=== PATIENT | female | born 1945 | race Caucasian/White ===

== ENCOUNTER 2017-11-08 08:42 | Outpatient (CLI) | payer MEDICARE ==
[2017-11-08 10:26] LABS: Bilirubin Small (Negative); Blood, Urine Negative (Negative); Clarity CLEAR (Clear); Glucose, Urine (Dipstick) Negative (Negative); Leukocyte Negative (Negative); Nitrite Negative (Negative); Protein, Urine (Dipstick) Trace mg/dL (Neg-Trace); Specific Gravity, Urine 1.025 (1.002-1.036); pH, Urine 5.5 (5.0-9.0)
[2017-11-08 10:29] LABS: #Basophils 0.1 thou/uL (0.0-0.2); #Eosinphils 0.1 thou/uL (0.0-0.7); #Lymphocytes 1.7 thou/uL (1.20-3.40); #Monocytes 0.6 thou/uL (0.11-0.59); #Neutrophils 3.5 thou/uL (1.40-6.50); %Basophils 0.9 % (0.0-1.0); %Eosinophils 1.8 % (0.0-10.0); %Lymphocytes 28.6 % (21.0-51.0); %Monocytes 10.3 % (0.0-10.0); %Neutrophils 58.4 % (42.0-75.0); Hemoglobin 14.4 g/dL (12.0-16.0); Mean Corpuscular HGB CONC 34.2 g/dL (32.0-36.0); Mean Corpuscular Hemoglobin 32.7 pg (27.0-31.0); Mean Corpuscular Volume 95.6 fL (78.0-98.0); Mean Platelet Volume 6.8 fL (7.4-10.4); Pathc Cast-AUWi Flag 1.88 (0-2.49); Platelet Count 280 thou/uL (130-400); RBC Distribution Width 12.6 % (11.5-14.5); Red Blood Cell (RBC) Count 4.39 mill/uL (4.20-5.40); Squamous Epithelial 0-3 HPF (0-3); WBC/HPF 0-3 HPF (0-3)
[2017-11-08 10:31] LABS: INR-International Normal Ratio 0.9; Prothrombin Time 12.6 SEC (12.0-14.7)
[2017-11-08 10:39] LABS: Bacteria/HPF 1+ HPF (None Seen); Crystals/HPF 1+ CA OXALATE HPF (Negative); Hyaline Casts/LPF NONE SEEN LPF (0-3 Hyaline); RBC/HPF None Seen HPF (0-3)
[2017-11-08 10:48] LABS: Anion Gap 14 mmol/L (10-20); BUN (Urea Nitrogen) 9 mg/dL (9.8-20.1); Calc. Creatinine Clearance 0 mL/min (70-130); Carbon Dioxide 21 mmol/L (23-31); Chloride 106 mmol/L (98-107); Estimated GFR-MDRD 69; Glucose 106 mg/dL (83-110); Potassium 3.9 mmol/L (3.5-5.1); Sodium 137 mmol/L (136-145)
== END 2017-11-08 08:43 | disposition home or self-care (01) ==
LOC: LABBT 08:42
PROVIDERS: ATTEND Orthopaedic Surgery
DX: Z01.818 Encounter for other preprocedural examination (principal); M17.11 Unilateral primary osteoarthritis, right knee
CPT/HCPCS: 80048; 81001; 85025; 85610; 87081; 87086; 93005; 93010

== ENCOUNTER 2017-11-14 12:36 | Outpatient (CLI) | payer MEDICARE | END 2017-11-14 12:37 | disposition home or self-care (01) | LOC: LABBT 12:36 | PROVIDERS: ATTEND Orthopaedic Surgery | DX: Z01.818 Encounter for other preprocedural examination (principal); M17.11 Unilateral primary osteoarthritis, right knee | CPT/HCPCS: 86850; 86900; 86901 ==

== ENCOUNTER 2017-11-19 05:40 | Inpatient (IN) | payer MEDICARE ==
[2017-11-08 09:12] VITALS: BMI 31.2
--- NOTE | 2017-11-09 09:48 | HP ---
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 There has been no recent inju ry. She has had arthroscopic meniscectomies of both knees in the past. She has developed progressiv e pain and difficulty walking, getting dressed despite rest, restriction of activities, anti-inflamma tory medications, and multiple previous injections. The pain is now interfering with day-to-day acti vities including walking, getting dressed and sleeping. PAST MEDICAL HISTORY: As noted above. The patient has a history of hypertension. PAST SURGICAL HISTORY: She has had multiple previous back surgeries and has some chronic pain and is followed by Dr. Allred. CURRENT MEDICATIONS: Include temazepam, estradiol, omega 3, multivitamins, amlodipine. ALLERGIES: CODEINE and TOPAMAX. FAMILY HISTORY/SOCIAL HISTORY/REVIEW OF SYSTEMS: Otherwise unremarkable. PHYSICAL EXAMINATION: GENERAL: Reveals a healthy female. HEENT: Unremarkable. NECK: Supple. CHEST: Clear. HEART: Regular rate and rhythm. ABDOMEN: Soft, nontender. PELVIC/RECTAL/BREAST: Exams are deferred. EXTREMITIES: Pertinent findings of the right knee. There is mild varus. There are healed arthrosco py puncture sites. There is tenderness and crepitus over the medial joint line. Range of motion is 5-120 degrees. There is no instability. Neurovascular exam is intact. Pulses are 2+. Straight leg raising is negative. LABORATORY AND X-RAY FINDINGS: X-rays of the right knee reveal bone on bone collapse medially. IMPRESSION: 1. Degenerative arthritis, right knee. 2. History of hypertension. PLAN: Right total knee replacement. The nature of the surgery, length of recovery, and potential co mplications such as infection, loss of motion, incomplete relief, delayed wound healing, neurovascula r injury, thromboembolic phenomenon, possible transfusion, and need for revision have been discussed in detail.
[2017-11-19] MEDS ORDERED: Vancomycin HCl 1.5 GM in Sodium Chloride 0.9% 250 ML 300 ML IVPB SCH ×2 (06:15→20:00)
[2017-11-19] MEDS ORDERED: CEFAZOLIN/Water 2 GM/20 ML SYRINGE ONE (06:27)
[2017-11-19] MEDS ORDERED: Sodium Chloride 0.9% 100 ML ONE (06:27)
[2017-11-19] MEDS ORDERED: Midazolam HCl 2 mg/2 ml Vial ONE (06:30)
[2017-11-19] MEDS ORDERED: Lidocaine 1% (PF) 30 ML VIAL ONE (06:30)
[2017-11-19] MEDS ORDERED: Fentanyl 100 MCG/2 ML VIAL ONE ×5 (06:30→10:05)
[2017-11-19] MEDS ORDERED: Bupivacaine/Epinephrine 0.25% 30 ML VIAL ONE ×2 (06:57)
[2017-11-19] MEDS ORDERED: Lidocaine 1% w/Epinephrine 1:100K 30 ML VIAL ONE (06:57)
[2017-11-19] MEDS ORDERED: Zolpidem Tartrate 5 MG TAB PO PRN ×2 (06:59→11:15)
[2017-11-19] MEDS ORDERED: HYDROcodone/Acetaminophen 10/325 mg Tablet PO PRN ×4 (06:59→11:15)
[2017-11-19] MEDS ORDERED: Ondansetron HCl/PF 4 MG/2 ML Vial IVP PRN ×3 (06:59→11:15)
[2017-11-19] MEDS ORDERED: traMADol HCl 50 MG TAB PO PRN ×3 (06:59→11:15)
[2017-11-19] MEDS ORDERED: Promethazine HCl 25 MG/ML VIAL IM PRN ×2 (06:59→07:29)
[2017-11-19] MEDS ORDERED: Ropivacaine HCl/PF 250 ML in Premix Bag 1 BAG NERVE BLCK SCH (06:59)
[2017-11-19] MEDS ORDERED: Fentanyl 100 MCG/2 ML VIAL IV PRN (07:00)
[2017-11-19] MEDS ORDERED: Promethazine HCl 25 MG/ML VIAL SLOW IVP PRN ×2 (07:29→11:15)
[2017-11-19] MEDS ORDERED: Tranexamic Acid 1,000 MG in Sodium Chloride 0.9% 100 ML IVPB SCH ×2 (09:15→11:15)
[2017-11-19] MEDS ORDERED: HYDROmorphone 0.5 MG/0.5 ML SYRINGE ONE (10:18)
[2017-11-19] MEDS ORDERED: Fentanyl 100 MCG/2 ML VIAL SLOW IVP PRN ×2 (11:15)
--- NOTE | 2017-11-19 11:21 | OP ---
DATE OF PROCEDURE: 11/19/2017 SURGEON: Lupillo Richey M.D. CLINICAL SERVICES CONSULTANT: MICHELLE Bernard. ANESTHESIA: General plus adductor canal and sciatic nerve blocks. PREOPERATIVE DIAGNOSIS: Degenerative arthritis, right knee. POSTOPERATIVE DIAGNOSIS: Degenerative arthritis, right knee. PROCEDURES: Right total knee replacement with computer-assisted navigation with cemented [place] Tri athlon components (#4 femoral component, #4 universal tibial baseplate with 11 mm CS plastic insert, and all plastic A29 patellar component). NARRATIVE REPORT: After satisfactory anesthesia was induced in supine position, sequential compressi on device was placed on the non-operative leg throughout the procedure. The right leg was then prepp ed and draped in routine sterile fashion. Right leg was elevated and exsanguinated with an Esmarch b andage, and the tourniquet inflated to 300 mmHg. A gently curved medial parapatellar incision was ma de and carried down to subcutaneous tissues. Bleeding points controlled with Bovie cautery. Medial parapatellar arthrotomy was performed. Patella was dislocated laterally and portions of the fat pad were excised for exposure. There was marked degenerative arthritis of the knee, especially medially, with large areas of exposed bone. Meniscal remnants and osteophytes were removed. Using the Snaptrip r pinless navigation system and the appropriate guides, the distal femoral and proximal tibial articu lar surfaces were excised with an oscillating saw to accept the trial components. It was felt that a #4 femoral component and #4 universal tibial baseplate with 11 mm CS plastic insert gave appropriate size, fit, stability, and correction of the preoperative deformity. The patellar articular surface was excised to accept an all plastic A29 patellar component. There was good patellar tracking and go od range of motion. The trial components were removed. The knee was copiously irrigated with pulsat ile lavage and the bony surfaces thoroughly cleaned and dried. The permanent components were then ce mented in a single stage using 1 package of cement premixed with 1 gram of tobramycin powder. Excess cement was removed. There was again good fit and stability of the components. Knee was again copio usly irrigated. The medial retinaculum and quadriceps mechanism was closed with interrupted #2 Vicry l and a running #2 Quill. Subcutaneous tissues were closed with a running 0 Quill suture. Skin was infiltrated with 30 mL of 0.25% Marcaine with epinephrine. Skin was closed with running subcuticular 3-0 Monoderm and SurgiSeal skin adhesive. A sterile bulky compressive dressing was applied. The tourniquet deflated after 79 minutes. The chey[place] t promptly pinked up. Sequential compression device was placed on the operated leg and she was awake jessica, taken to the recovery room in stable condition. There were no apparent intraoperative complicat ions. The estimated blood loss was less than 100 mL.
--- NOTE | 2017-11-19 11:48 | RAD ---
RIGHT KNEE TWO VIEWS: History: Post op. FINDINGS: Total knee prosthesis is in place without signs of fracture. IMPRESSION: Placement of total knee prosthesis which is in good position. POS: [facility]
[2017-11-19] MEDS ORDERED: Estradiol 0.1mg/24 Hour Patch (Weekly) TD SCH (13:00)
[2017-11-19] MEDS: Ketorolac Tromethamine 30 MG/ML VIAL IVP SCH ×3 (14:11→22:36)
[2017-11-19] MEDS: Sodium Chloride 0.9% 1,000 ML IV SCH ×2 (14:15→21:59)
[2017-11-19] MEDS: CEFAZOLIN/Water 2 GM/20 ML SYRINGE SLOW IVP SCH ×2 (14:20→22:00)
[2017-11-19] MEDS ORDERED: Ropivacaine 0.5% HCl/PF (150 MG/30 ML VIAL) ONE (14:34)
[2017-11-19] MEDS ORDERED: Bupivacaine 0.25% HCL 30 ML VIAL ONE (14:34)
[2017-11-19] MEDS ORDERED: Lidocaine 1% PF 5 ML VIAL ONE (15:04)
[2017-11-19] MEDS ORDERED: PROPOFOL 200 MG/20 ML VIAL ONE (15:04)
[2017-11-19] MEDS ORDERED: Ondansetron HCl/PF 4 MG/2 ML Vial ONE (15:04)
[2017-11-19] MEDS ORDERED: Ketorolac Tromethamine 30 MG/ML VIAL ONE (15:04)
[2017-11-19] MEDS ORDERED: Naloxone HCl 0.4 mg/ml Vial IV PRN (15:53)
[2017-11-19] MEDS: fentaNYL Citrate/PF 2,000 MCG in Sodium Chloride 0.9% 60 ML IV PRN (16:49)
[2017-11-19] MEDS: Acetaminophen 650 MG in Premix Bag 1 BAG IVPB PRN (18:02)
[2017-11-19] MEDS: Aspirin 81 mg Enteric Coated Tablet PO SCH (20:05)
[2017-11-19] MEDS: diphenhydrAMINE 25 MG CAP PO PRN (22:00)
--- NOTE | 2017-11-19 23:56 | PDOC.EVN ---
Event Note - Event Note Event Note: consult dictated [id number]
--- NOTE | 2017-11-20 00:29 | CON ---
DATE OF CONSULTATION: 11/19/2017 PRIMARY CARE PHYSICIAN: Dr. Fela Conway. REASON FOR CONSULTATION: Medical management postoperatively. HISTORY OF PRESENT ILLNESS: This is a 72-year-old female with a history of degenerative joint diseas e, early menopause who has undergone a right total arthroplasty. The patient tolerated this procedur e well and I am currently evaluating the patient, status post surgery. The patient is awake, alert, conversant, and accompanied by her today At the time of my evaluation, the patient complains of discomfort surrounding her surgical site, but otherwise has no other pain. She has no other complaints at this point in time. REVIEW OF SYSTEMS: As per HPI. CONSTITUTIONAL: No recent illness, no fevers, no chills, no signifi cant weight loss or gain in the preceding months prior to surgery. HEENT: No new headaches, vision changes, lightheadedness or dizziness. CARDIOVASCULAR: Denies any chest pain, chest pressure or pal pitations, left-sided arm numbness or tingling. RESPIRATORY: Denies any shortness of breath, cough, congestion or dyspnea with mild exertion. GASTROINTESTINAL: Denies any nausea, vomiting, abdominal pain, diarrhea or constipation. GENITOURINARY: Denies any issues with urinary color, odor, frequen cy. Currently, has a Duncan in place. MUSCULOSKELETAL: As discussed above. Remainder of the review of systems otherwise negative. PAST MEDICAL HISTORY: As per above with a known history of occasional insomnia, status post hysterec ike and resultant early menopause for which the patient is on estradiol, hypertension, status post m ultiple back surgeries for chronic pain. HOME MEDICATIONS: Include the following, omega 3, Krill oil 1 tab p.o. daily, amlodipine 1 tab p.o. every other day, acetaminophen with codeine, Tylenol #3 one tab as needed, temazepam 30 mg p.o. at be dtime, estradiol 0.1 mg transdermal patch every week, vitamin D3 5000 units p.o. every other day. ALLERGIES: Include CODEINE which causes itching, although the patient apparently is able to tolerate the formulation and TYLENOL 3 and TOPIRAMATE. SOCIAL HISTORY: The patient is accompanied by her today. She denies any alcohol, tobacco or illicit drug use and endorses wishing to be FULL CODE at this point in time. FAMILY HISTORY: Denies any known family history of complications status post surgery or anesthesia. The patient herself has undergone multiple surgeries without any difficulty in the postoperative per iod. Patient also indicates that she has had a cataract surgery, which resulted in a degree of visio n loss postoperatively. This is grossly unchanged today. PHYSICAL EXAMINATION: GENERAL: The patient is awake, alert, appropriate, in no acute distress, conversant. HEENT: Normocephalic, atraumatic. Moist mucous membranes. Equal ocular motions are intact. CARDIOVASCULAR: S1, S2. Soft heart tones. Pulses 2+ in bilateral upper extremities. No pitting pe daisy edema. RESPIRATORY: Reduced air movements. No wheezes, no rales, no rhonchi. Grossly clear to auscultatio n without any conversational dyspnea. GASTROINTESTINAL: Positive bowel sounds, slightly decreased, but otherwise soft, nontender to palpat ion. MUSCULOSKELETAL: The patient's right lower extremity is bandaging and has not been taken off of exam ination. GENITOURINARY: The patient has a Duncan that is draining clear yellow urine. LABORATORY DATA: Currently none available. ASSESSMENT AND PLAN: This is a 72-year-old female status post right total knee arthroplasty, postope rative management as per Orthopedic Surgery. The patient has a known history of hypertension, for wh ich she takes amlodipine every other day as well as the patient's blood pressure allows it to be reas onable to resume this medication. The remainder of the patient's medications including her estradiol , temazepam may be resumed for her insomnia as her blood pressure tolerates. I would caution regardi ng temazepam use in conjunction with any potential narcotic pain regimen if needed. The patient may still take temazepam, but may consider a lower dose or not dosing at all if she has increased somnole nce from her pain medication regimen. I have discussed the above with the patient and her at bedside. Thank you for asking me to consult. We will continue to follow.
[2017-11-20 04:02] LABS: Hemoglobin 12.4 g/dL (12.0-16.0); Mean Corpuscular HGB CONC 33.4 g/dL (32.0-36.0); Mean Corpuscular Hemoglobin 32.7 pg (27.0-31.0); Mean Corpuscular Volume 97.9 fL (78.0-98.0); Mean Platelet Volume 6.8 fL (7.4-10.4); Platelet Count 232 thou/uL (130-400); RBC Distribution Width 12.9 % (11.5-14.5); Red Blood Cell (RBC) Count 3.79 mill/uL (4.20-5.40); White Blood Cell (WBC) Count 10.8 thou/uL (4.8-10.8)
[2017-11-20] MEDS: Ketorolac Tromethamine 30 MG/ML VIAL IVP SCH ×4 (05:46→23:26)
[2017-11-20] MEDS: Acetaminophen 650 MG in Premix Bag 1 BAG IVPB PRN (08:51)
[2017-11-20] MEDS ORDERED: KRILL PO SCH (09:00)
[2017-11-20] MEDS ORDERED: DHA PO SCH (09:00)
[2017-11-20] MEDS ORDERED: EPA PO SCH (09:00)
[2017-11-20] MEDS ORDERED: PHOSPHO PO SCH (09:00)
[2017-11-20] MEDS ORDERED: [UNRECOGNIZED DRUG - OTHER] PO SCH (09:00)
[2017-11-20] MEDS ORDERED: AST PO SCH (09:00)
[2017-11-20] MEDS: Multivitamin W/ Minerals 1 TAB PO SCH (09:01)
[2017-11-20] MEDS: Senokot S 8.6-50 MG TAB PO SCH ×2 (09:01→20:55)
[2017-11-20] MEDS: Ferrous Gluconate 324 MG TAB PO SCH ×2 (09:01→20:55)
[2017-11-20] MEDS: Aspirin 81 mg Enteric Coated Tablet PO SCH ×2 (09:01→20:55)
[2017-11-20] MEDS: Amlodipine 5 MG TAB PO SCH (09:02)
[2017-11-20] MEDS: Sodium Chloride 0.9% 1,000 ML IV SCH ×2 (09:17→20:58)
[2017-11-20] MEDS: diphenhydrAMINE 25 MG CAP PO PRN ×2 (10:26→20:55)
[2017-11-20] MEDS ORDERED: Acetaminophen 650 MG in Premix Bag 1 BAG IVPB PRN (16:13)
--- NOTE | 2017-11-20 16:19 | PDOC.PN ---
- Subjective Encounter Start Date: 11/20/17 Encounter Start Time: 09:00 Pt seen for followup re: hypertension. Denies chest pain, shortness of breath, fevers or chills. - Objective MAR Reviewed: Yes Vital Signs & Weight: Vital Signs (12 hours) Temp Pulse Resp BP BP BP Pulse Ox 11/20/17 15:40 98.3 F 73 16 153/80 H 99 11/20/17 12:05 98.2 F 69 16 132/75 97 11/20/17 09:02 81 124/70 11/20/17 08:00 98.6 F 81 20 96 11/20/17 07:47 98.9 F 75 16 124/72 96 Weight Admit Weight 182 lb Weight 182 lb I&O: 11/19/17 11/20/17 11/21/17 06:59 06:59 06:59 Intake Total 1900 Output Total 700 Balance 1200 Result Diagrams: 11/20/17 03:31 Additional Labs: Labs reviewed by me Phys Exam - Physical Examination Constitutional: NAD HEENT: moist MMs Neck: supple Respiratory: clear to auscultation bilateral Cardiovascular: RRR Gastrointestinal: soft s/p R knee surgery Psychiatric: normal affect Dx/Plan (1) HTN (hypertension) Code(s): I10 - ESSENTIAL (PRIMARY) HYPERTENSION Status: Chronic Comment: controlled, continue amlodipine (2) Arthritis Code(s): M19.90 - UNSPECIFIED OSTEOARTHRITIS, UNSPECIFIED SITE Status: Chronic Comment: s/p R knee surgery - Plan PT/OT * . pain management and DVT prophylaxis per orthopedic surgery service. Review of Systems - Review of Systems Respiratory: negative: Cough, Shortness of Breath, SOB with Excertion, Pleuritic Pain, Wheezing Cardiovascular: negative: chest pain, palpitations, orthopnea, paroxysmal nocturnal dyspnea, edema, light headedness - Medications/Allergies Allergies/Adverse Reactions: Allergies Allergy/AdvReac Type Severity Reaction Status Date / Time codeine Allergy itching Verified 11/08/17 09:13 topiramate [From Topamax] Allergy Verified 11/08/17 09:13 Medications: Current Medications Acetaminophen (Tylenol) 650 mg PO Q4H PRN PRN Reason: WEISS/ T > 101F; Mild Pain (1-3) Amlodipine Besylate (Norvasc) 2.5 mg PO Q2D@0900 [facility] Last Admin: 11/20/17 09:02 Dose: 2.5 mg Aspirin (Ecotrin) 81 mg PO BID [facility] Last Admin: 11/20/17 09:01 Dose: 81 mg Cholecalciferol (Vitamin D3) 5,000 units PO DAILY [facility] Last Admin: 11/20/17 09:01 Dose: 5,000 units Diphenhydramine HCl (Benadryl) 25 mg PO Q6H PRN PRN Reason: Itching Last Admin: 11/20/17 10:26 Dose: 25 mg Estradiol (Climara (Weekly)) 0.1 mg TD Q7D@1300 [facility] Last Admin: 11/19/17 14:14 Dose: Not Given Ferrous Gluconate (Fergon) 324 mg PO BID [facility] Last Admin: 11/20/17 09:01 Dose: 324 mg Ropivacaine 250 ml/ Device 250 mls @ 0 mls/hr NERVE BLCK INF [facility] PRN Reason: As Directed Last Admin: 11/20/17 11:58 Dose: 250 mls Sodium Chloride (Normal Saline 0.9%) 1,000 mls @ 100 mls/hr IV .Q10H [facility] Last Admin: 11/20/17 09:17 Dose: 1,000 mls Fentanyl Citrate 2,000 mcg/ (Sodium Chloride) 100 mls @ 0 mls/hr IV INF PRN; As Directed PRN Reason: Pain Last Admin: 11/19/17 16:49 Dose: 100 mls Acetaminophen 650 mg/ Device 65 mls @ 400 mls/hr IVPB Q6H PRN PRN Reason: Fever > 101 Stop: 11/20/17 18:13 Iron/Minerals/Multivitamins (Theragran M) 1 tab PO DAILY [facility] Last Admin: 11/20/17 09:01 Dose: 1 tab Ketorolac Tromethamine (Toradol) 15 mg IVP Q6HR [facility] Stop: 11/21/17 06:01 Last Admin: 11/20/17 11:59 Dose: 15 mg Naloxone HCl (Narcan) 0.2 mg IV Q5MIN PRN PRN Reason: RR <8 or pt obtun/unarousable Ondansetron HCl (Zofran) 4 mg IVP Q6H PRN PRN Reason: Nausea/Vomiting Promethazine HCl (Phenergan) 12.5 mg IM Q4H PRN PRN Reason: Nausea Promethazine HCl (Phenergan) 12.5 mg SLOW IVP Q4H PRN PRN Reason: Nausea/Vomiting Senna/Docusate Sodium (Senokot S) 2 tab PO BID [facility] Last Admin: 11/20/17 09:01 Dose: 2 tab Sodium Chloride (Flush - Normal Saline) 10 ml IVF PRN PRN PRN Reason: Saline Flush Zolpidem Tartrate (Ambien) 5 mg PO HSPRN PRN PRN Reason: Insomnia
[2017-11-20] MEDS: fentaNYL Citrate/PF 2,000 MCG in Sodium Chloride 0.9% 60 ML IV PRN (16:31)
[2017-11-20] MEDS: Temazepam 15 MG CAP PO SCH (20:55)
[2017-11-20] MEDS: Acetaminophen 325 MG TAB PO PRN (22:14)
[2017-11-21] MEDS: Sodium Chloride 0.9% 1,000 ML IV SCH ×3 (01:56→23:31)
[2017-11-21] MEDS: Ketorolac Tromethamine 30 MG/ML VIAL IVP SCH (05:03)
[2017-11-21] MEDS: Senokot S 8.6-50 MG TAB PO SCH ×2 (08:08→20:16)
[2017-11-21] MEDS: Acetaminophen 325 MG TAB PO PRN (08:08)
[2017-11-21] MEDS: Aspirin 81 mg Enteric Coated Tablet PO SCH ×2 (08:09→20:17)
[2017-11-21] MEDS: Multivitamin W/ Minerals 1 TAB PO SCH (08:09)
[2017-11-21] MEDS: Ferrous Gluconate 324 MG TAB PO SCH ×2 (08:09→20:17)
[2017-11-21] MEDS ORDERED: HYDROcodone/Acetaminophen 10/325 mg Tablet PO PRN (12:31)
--- NOTE | 2017-11-21 13:59 | PDOC.PN ---
- Subjective Encounter Start Date: 11/21/17 Encounter Start Time: 07:40 Pt seen for followup re: hypertension. Denies chest pain or shortness fo breath. Reports pain at surgical site. - Objective Vital Signs & Weight: Vital Signs (12 hours) Temp Pulse Resp BP Pulse Ox 11/21/17 12:05 98.4 F 71 22 H 125/73 99 11/21/17 08:00 98.4 F 67 20 97 11/21/17 07:05 98.4 F 67 20 133/72 97 11/21/17 05:00 98.9 F 79 18 142/84 H 96 Weight Admit Weight 182 lb Weight 182 lb I&O: 11/20/17 11/21/17 11/22/17 06:59 06:59 06:59 Intake Total 1900 2040 Output Total 700 900 Balance 1200 1140 Result Diagrams: 11/20/17 03:31 Phys Exam - Physical Examination Constitutional: NAD HEENT: moist MMs Neck: supple Cardiovascular: RRR Gastrointestinal: soft s/p R knee surgery Neurological: moves all 4 limbs Dx/Plan (1) HTN (hypertension) Code(s): I10 - ESSENTIAL (PRIMARY) HYPERTENSION Status: Chronic Comment: controlled, continue amlodipine 2.5 mg PO Q2d (2) Arthritis Code(s): M19.90 - UNSPECIFIED OSTEOARTHRITIS, UNSPECIFIED SITE Status: Chronic Comment: s/p R knee surgery - Plan PT/OT, out of bed/ambulate * . Review of Systems - Review of Systems Cardiovascular: negative: chest pain, palpitations, orthopnea, paroxysmal nocturnal dyspnea, edema, light headedness Gastrointestinal: negative: Nausea, Vomiting, Abdominal Pain, Diarrhea, Constipation, Melena, Hematochezia - Medications/Allergies Allergies/Adverse Reactions: Allergies Allergy/AdvReac Type Severity Reaction Status Date / Time codeine Allergy itching Verified 11/08/17 09:13 topiramate [From Topamax] Allergy Verified 11/08/17 09:13 Medications: Current Medications Acetaminophen (Tylenol) 650 mg PO Q4H PRN PRN Reason: WEISS/ T > 101F; Mild Pain (1-3) Last Admin: 11/21/17 08:08 Dose: 650 mg Hydrocodone Bitart/Acetaminophen ([place] 10/325) 1 tab PO Q4H PRN PRN Reason: Mild-Moderate Pain (1-5) Hydrocodone Bitart/Acetaminophen ([place] 10/325) 2 tab PO Q4H PRN PRN Reason: Moderate to Severe Pain (6-10) Amlodipine Besylate (Norvasc) 2.5 mg PO Q2D@0900 [facility] Last Admin: 11/20/17 09:02 Dose: 2.5 mg Aspirin (Ecotrin) 81 mg PO BID [facility] Last Admin: 11/21/17 08:09 Dose: 81 mg Cholecalciferol (Vitamin D3) 5,000 units PO DAILY [facility] Last Admin: 11/21/17 08:08 Dose: 5,000 units Diphenhydramine HCl (Benadryl) 25 mg PO Q6H PRN PRN Reason: Itching Last Admin: 11/20/17 20:55 Dose: 25 mg Estradiol (Climara (Weekly)) 0.1 mg TD Q7D@1300 [facility] Last Admin: 11/19/17 14:14 Dose: Not Given Ferrous Gluconate (Fergon) 324 mg PO BID [facility] Last Admin: 11/21/17 08:09 Dose: 324 mg Ropivacaine 250 ml/ Device 250 mls @ 0 mls/hr NERVE BLCK INF [facility] PRN Reason: As Directed Last Admin: 11/20/17 11:58 Dose: 250 mls Sodium Chloride (Normal Saline 0.9%) 1,000 mls @ 100 mls/hr IV .Q10H [facility] Last Admin: 11/21/17 01:56 Dose: Not Given Fentanyl Citrate 2,000 mcg/ (Sodium Chloride) 100 mls @ 0 mls/hr IV INF PRN; As Directed PRN Reason: Pain Last Admin: 11/20/17 16:31 Dose: 100 mls Iron/Minerals/Multivitamins (Theragran M) 1 tab PO DAILY [facility] Last Admin: 11/21/17 08:09 Dose: 1 tab Ketorolac Tromethamine (Toradol) 10 mg PO Q6HR [facility] Stop: 11/26/17 18:01 Naloxone HCl (Narcan) 0.2 mg IV Q5MIN PRN PRN Reason: RR <8 or pt obtun/unarousable Ondansetron HCl (Zofran) 4 mg IVP Q6H PRN PRN Reason: Nausea/Vomiting Promethazine HCl (Phenergan) 12.5 mg IM Q4H PRN PRN Reason: Nausea Promethazine HCl (Phenergan) 12.5 mg SLOW IVP Q4H PRN PRN Reason: Nausea/Vomiting Senna/Docusate Sodium (Senokot S) 2 tab PO BID [facility] Last Admin: 11/21/17 08:08 Dose: 2 tab Sodium Chloride (Flush - Normal Saline) 10 ml IVF PRN PRN PRN Reason: Saline Flush Temazepam (Restoril) 30 mg PO [facility] Last Admin: 11/20/17 20:55 Dose: 30 mg Zolpidem Tartrate (Ambien) 5 mg PO HSPRN PRN PRN Reason: Insomnia
[2017-11-21] MEDS: HYDROcodone/Acetaminophen 10/325 mg Tablet PO PRN ×2 (14:23→20:20)
[2017-11-21] MEDS: diphenhydrAMINE 25 MG CAP PO PRN (15:16)
[2017-11-21] MEDS: Ketorolac Tromethamine 10 MG TAB PO SCH ×2 (17:53→22:08)
[2017-11-21] MEDS: fentaNYL Citrate/PF 2,000 MCG in Sodium Chloride 0.9% 60 ML IV PRN (19:47)
[2017-11-21] MEDS: Temazepam 15 MG CAP PO SCH (22:08)
[2017-11-22] MEDS: HYDROcodone/Acetaminophen 10/325 mg Tablet PO PRN ×4 (02:02→13:44)
[2017-11-22] MEDS: diphenhydrAMINE 25 MG CAP PO PRN ×2 (02:43→11:19)
[2017-11-22] MEDS ORDERED: Calcium Carbonate 500 MG ChewTAB PO PRN (03:32)
[2017-11-22] MEDS: Ketorolac Tromethamine 10 MG TAB PO SCH ×2 (05:28→11:18)
[2017-11-22] MEDS: Aspirin 81 mg Enteric Coated Tablet PO SCH (08:05)
[2017-11-22] MEDS: Senokot S 8.6-50 MG TAB PO SCH (08:05)
[2017-11-22] MEDS: Ferrous Gluconate 324 MG TAB PO SCH (08:06)
[2017-11-22] MEDS: Amlodipine 5 MG TAB PO SCH (08:06)
[2017-11-22] MEDS: Multivitamin W/ Minerals 1 TAB PO SCH (08:06)
[2017-11-22] MEDS: Sodium Chloride 0.9% 1,000 ML IV SCH (10:18)
[2017-11-22 11:32] VITALS: BP 139/87; TEMP 98
--- NOTE | 2017-11-22 15:29 | PDOC.PN ---
- Subjective Encounter Start Date: 11/22/17 Encounter Start Time: 09:00 Pt seen for followup re: hypertension. Feels better, pain is better. No chest pain, shortness of breath, fevers or chills. - Objective MAR Reviewed: Yes Vital Signs & Weight: Vital Signs (12 hours) Temp Pulse Resp BP BP BP Pulse Ox 11/22/17 11:16 98 F 73 17 139/87 98 11/22/17 08:06 75 146/80 H 11/22/17 08:00 98.2 F 75 18 99 11/22/17 07:26 98.2 F 75 18 146/80 H 99 11/22/17 04:07 97.8 F 77 20 145/66 H 99 Weight Admit Weight 182 lb Weight 182 lb I&O: 11/21/17 11/22/17 11/23/17 06:59 06:59 06:59 Intake Total 2040 1000 Output Total 900 200 Balance 1140 800 Result Diagrams: 11/20/17 03:31 Additional Labs: Labs reviewed by me Phys Exam - Physical Examination Obese HEENT: moist MMs Neck: supple Respiratory: clear to auscultation bilateral Cardiovascular: RRR Neurological: moves all 4 limbs Psychiatric: normal affect Dx/Plan (1) HTN (hypertension) Code(s): I10 - ESSENTIAL (PRIMARY) HYPERTENSION Status: Chronic Comment: controlled (2) Arthritis Code(s): M19.90 - UNSPECIFIED OSTEOARTHRITIS, UNSPECIFIED SITE Status: Chronic Comment: s/p R knee surgery - Plan * . Review of Systems - Review of Systems Respiratory: negative: Cough, Shortness of Breath, SOB with Excertion, Pleuritic Pain, Wheezing Cardiovascular: negative: chest pain, palpitations, orthopnea, paroxysmal nocturnal dyspnea, edema, light headedness - Medications/Allergies Allergies/Adverse Reactions: Allergies Allergy/AdvReac Type Severity Reaction Status Date / Time codeine Allergy itching Verified 11/08/17 09:13 topiramate [From Topamax] Allergy Verified 11/08/17 09:13 Medications: Current Medications Acetaminophen (Tylenol) 650 mg PO Q4H PRN PRN Reason: WEISS/ T > 101F; Mild Pain (1-3) Last Admin: 11/21/17 08:08 Dose: 650 mg Hydrocodone Bitart/Acetaminophen ([place] 10/325) 1 tab PO Q4H PRN PRN Reason: Mild-Moderate Pain (1-5) Hydrocodone Bitart/Acetaminophen ([place] 10/325) 2 tab PO Q4H PRN PRN Reason: Moderate to Severe Pain (6-10) Last Admin: 11/22/17 13:44 Dose: 2 tab Amlodipine Besylate (Norvasc) 2.5 mg PO Q2D@0900 [facility] Last Admin: 11/22/17 08:06 Dose: 2.5 mg Aspirin (Ecotrin) 81 mg PO BID [facility] Last Admin: 11/22/17 08:05 Dose: 81 mg Calcium Carbonate (Tums) 500 mg PO PRN PRN PRN Reason: MILD TO MOD INDIGESTION Cholecalciferol (Vitamin D3) 5,000 units PO DAILY [facility] Last Admin: 11/22/17 08:05 Dose: 5,000 units Diphenhydramine HCl (Benadryl) 25 mg PO Q6H PRN PRN Reason: Itching Last Admin: 11/22/17 11:19 Dose: 25 mg Estradiol (Climara (Weekly)) 0.1 mg TD Q7D@1300 [facility] Last Admin: 11/19/17 14:14 Dose: Not Given Ferrous Gluconate (Fergon) 324 mg PO BID [facility] Last Admin: 11/22/17 08:06 Dose: 324 mg Ropivacaine 250 ml/ Device 250 mls @ 0 mls/hr NERVE BLCK INF [facility] PRN Reason: As Directed Last Admin: 11/20/17 11:58 Dose: 250 mls Sodium Chloride (Normal Saline 0.9%) 1,000 mls @ 100 mls/hr IV .Q10H [facility] Last Admin: 11/22/17 10:18 Dose: Not Given Fentanyl Citrate 2,000 mcg/ (Sodium Chloride) 100 mls @ 0 mls/hr IV INF PRN; As Directed PRN Reason: Pain Last Admin: 11/21/17 19:47 Dose: 100 mls Iron/Minerals/Multivitamins (Theragran M) 1 tab PO DAILY [facility] Last Admin: 11/22/17 08:06 Dose: 1 tab Ketorolac Tromethamine (Toradol) 10 mg PO Q6HR [facility] Stop: 11/26/17 18:01 Last Admin: 11/22/17 11:18 Dose: 10 mg Naloxone HCl (Narcan) 0.2 mg IV Q5MIN PRN PRN Reason: RR <8 or pt obtun/unarousable Ondansetron HCl (Zofran) 4 mg IVP Q6H PRN PRN Reason: Nausea/Vomiting Promethazine HCl (Phenergan) 12.5 mg IM Q4H PRN PRN Reason: Nausea Promethazine HCl (Phenergan) 12.5 mg SLOW IVP Q4H PRN PRN Reason: Nausea/Vomiting Senna/Docusate Sodium (Senokot S) 2 tab PO BID [facility] Last Admin: 11/22/17 08:05 Dose: 2 tab Sodium Chloride (Flush - Normal Saline) 10 ml IVF PRN PRN PRN Reason: Saline Flush Temazepam (Restoril) 30 mg PO [facility] Last Admin: 11/21/17 22:08 Dose: 30 mg Zolpidem Tartrate (Ambien) 5 mg PO HSPRN PRN PRN Reason: Insomnia
== END 2017-11-22 15:43 | disposition home or self-care (01) | DRG 470 ==
LOC: SDC 05:40 → SURG B 11:20
PROVIDERS: ADMIT Orthopaedic Surgery; ATTEND Orthopaedic Surgery
PROC: 0SRC0J9 Replacement of Right Knee Joint with Synthetic Substitute, Cemented, Open Approach (ICD-10-PCS; principal; 2017-11-19)
PROC: 8E0YXBZ Computer Assisted Procedure of Lower Extremity (ICD-10-PCS; 2017-11-19)
DX: M17.0 Bilateral primary osteoarthritis of knee (principal); I10 Essential (primary) hypertension; G47.00 Insomnia, unspecified; G89.29 Other chronic pain; Z88.5 Allergy status to narcotic agent; Z88.8 Allergy status to other drugs, medicaments and biological substances; Z79.899 Other long term (current) drug therapy
CPT/HCPCS: 36415; 85027; 96374; C1713; C1776; G8978-GP-CL; G8979-GP-CJ; J0131; J1170; J1885; J2001; J2250; J2405; J2704; J2795; J3010; J3370; J7050; S0020

== ENCOUNTER 2017-12-01 18:00 | Observation (INO) | payer MEDICARE ==
--- NOTE | 2017-12-01 19:02 | RAD ---
RIGHT KNEE FOUR VIEWS: 12/01/17 COMPARISON: 11/30/17 HISTORY: Prior surgery, pain. FINDINGS: No knee joint effusion. There is a total knee arthroplasty on the right with no evidence for hardware failure. No subcutaneous gas or radiopaque foreign body. No displaced fracture or dislocation. IMPRESSION: No acute fracture or evidence of dislocation. Stable four view examination of the right knee. POS: [facility]
[2017-12-01] MEDS ORDERED: Morphine 4 MG/ML VIAL ONE ×2 (20:07→21:14)
[2017-12-01 20:31] LABS: ALT (SGPT) 11 U/L (8-55); AST (SGOT) 22 U/L (5-34); Albumin 3.5 g/dL (3.4-4.8); Alkaline Phosphatase 78 U/L (40-150); Anion Gap 13 mmol/L (10-20); BUN (Urea Nitrogen) 9 mg/dL (9.8-20.1); Bilirubin, Total 0.5 mg/dL (0.2-1.2); Calc. Creatinine Clearance 0 mL/min (70-130); Calcium 9.9 mg/dL (7.8-10.44); Carbon Dioxide 26 mmol/L (23-31); Chloride 104 mmol/L (98-107); Estimated GFR-MDRD 72; Globulin 3.3 g/dL (2.4-3.5); Glucose 93 mg/dL (83-110); Potassium 4.4 mmol/L (3.5-5.1); Protein, Total 6.8 g/dL (6.0-8.3); Sodium 139 mmol/L (136-145)
--- NOTE | 2017-12-01 20:49 | ULT ---
RIGHT LOWER EXTREMITY VENOUS DOPPLER ULTRASOUND: 12/01/17 COMPARISON: None. HISTORY: Edema, swelling, pain, assess for DVT. TECHNIQUE: Multiplanar kulkarni scale sonographic imaging of the right lower extremity Obtained with color flow/spectral analysis. FINDINGS: Right common femoral vein, femoral vein, popliteal vein, greater saphenous vein, profunda femoral vei n, posterior tibial vein, and anterior tibial vein are patent. there is normal blood flow, augmentati on and compression within the deep venous system of the right lower extremity. No evidence for deep v enous thrombosis. IMPRESSION: No evidence for deep venous thrombus of the right lower extremity. POS: [facility]
[2017-12-01 21:57] LABS: Hemoglobin 11.5 g/dL (12.0-16.0); Mean Corpuscular HGB CONC 31.6 g/dL (32.0-36.0); Mean Corpuscular Hemoglobin 30.8 pg (27.0-31.0); Mean Corpuscular Volume 97.2 fL (78.0-98.0); Platelet Count 293 thou/uL (130-400); RBC Distribution Width 13.2 % (11.5-14.5); Red Blood Cell (RBC) Count 3.72 mill/uL (4.20-5.40); White Blood Cell (WBC) Count 7.9 thou/uL (4.8-10.8)
[2017-12-01 22:18] LABS: Lymphocytes 26 % (21-51); MDiff Complete? YES; Monocytes 12 % (0-10); Neutrophil 62 % (42-75); PLT Morphology Comment PLT clumps seen-ADEQ; Platelet Clumps SLIGHT; RBC Morphology Normal
[2017-12-01] MEDS ORDERED: Lidocaine 1% PF 5 ML VIAL ONE (23:37)
[2017-12-01] MEDS ORDERED: Ondansetron HCl/PF 4 MG/2 ML Vial ONE (23:47)
[2017-12-01] MEDS ORDERED: Morphine 10 MG/ML VIAL ONE (23:47)
[2017-12-02] MEDS ORDERED: Morphine 4 MG/ML VIAL IM PRN (00:54)
[2017-12-02] MEDS ORDERED: Lactated Ringer's 1,000 ML IV SCH (01:00)
[2017-12-02 01:13] VITALS: BMI 31.7
[2017-12-02] MEDS ORDERED: HYDROcodone/Acetaminophen 10/325 mg Tablet PO PRN (02:03)
[2017-12-02] MEDS: Fentanyl 100 MCG/2 ML VIAL SLOW IVP PRN ×2 (02:17→06:01)
[2017-12-02] MEDS: HYDROcodone/Acetaminophen 10/325 mg Tablet PO PRN ×2 (02:25→10:30)
[2017-12-02] MEDS ORDERED: Fentanyl 100 MCG/2 ML VIAL SLOW IVP PRN ×2 (02:38→02:45)
[2017-12-02] MEDS ORDERED: EPA PO SCH (09:00)
[2017-12-02] MEDS ORDERED: Amlodipine 5 MG TAB PO SCH (09:00)
[2017-12-02] MEDS ORDERED: PHOSPHO PO SCH (09:00)
[2017-12-02] MEDS ORDERED: Aspirin 81 mg Enteric Coated Tablet PO SCH (09:00)
[2017-12-02] MEDS ORDERED: AST PO SCH (09:00)
[2017-12-02] MEDS ORDERED: DHA PO SCH (09:00)
[2017-12-02] MEDS ORDERED: KRILL PO SCH (09:00)
[2017-12-02] MEDS ORDERED: [UNRECOGNIZED DRUG - OTHER] PO SCH (09:00)
[2017-12-02 13:14] VITALS: TEMP 98.4
[2017-12-02 14:04] VITALS: BP 149/74
[2017-12-02] MEDS ORDERED: Temazepam 15 MG CAP PO SCH (21:00)
[2017-12-03] MEDS ORDERED: Estradiol 0.1mg/24 Hour Patch (Weekly) TD SCH (09:00)
--- NOTE | 2017-12-03 15:06 | HP ---
ADDENDUM DATE OF CONSULTATION: 12/02/2017 This is an addendum to previous admission from 11/20/2017. Ms. Dial was admitted for pain after to [facility] knee arthroplasty. She was actually admitted just to the observation service. She had increasin g pain after physical therapy 3 days ago and was very concerned about infection. She was seen to [facility] and then called me last night, and I asked her to come to [facility]. At [facility], she has normal white count. She really has not had a significant fever. Her CRP is elevat ed at 6, but is only 11 days postop. It sounds very difficult to dog show judge the significance of this in l ight of acute surgery history. She feels better today. Examination today shows she has surprisingly small effusion. She has a little bit of redness over knee which is commonly seen with all total kne e and range of motion is about -10 to 70. Radiographs do not show any fracture or dislocation. ASSESSMENT AND PLAN: Acute painful total knee. No evidence of DVT, very unlikely for infections, bu t due to the fact that she has no fever, minimal effusion, no drainage. I was prepared to aspirate h er knee and actually came in the room with material to aspirate her knee, but her effusion is so smal l, I think the risk of contamination is greater than risk of diagnosing anything important so she theron l be discharged home. Follow up with Dr. Richey in 2-3 days.
== END 2017-12-02 13:58 | disposition home or self-care (01) ==
LOC: ERS 18:00 → SURG A 23:34
PROVIDERS: ADMIT Orthopaedic Surgery; ATTEND Orthopaedic Surgery
DX: G89.18 Other acute postprocedural pain (principal); M25.561 Pain in right knee; I10 Essential (primary) hypertension; M17.12 Unilateral primary osteoarthritis, left knee; Z79.899 Other long term (current) drug therapy; Z88.5 Allergy status to narcotic agent; Z88.8 Allergy status to other drugs, medicaments and biological substances; Z96.651 Presence of right artificial knee joint
CPT/HCPCS: 73564; 80053; 85025; 85379; 86140; 93971; 96361; 96372; 96374; 96375 ×2; 96376; 99285; G0378 ×2; J2001; J2270; J2405; J3010

== ENCOUNTER 2020-07-26 11:41 | Day surgery (SDC) | payer MEDICARE ==
[2020-07-22 12:57] VITALS: BMI 30.9
[2020-07-26] MEDS ORDERED: Fentanyl 100 MCG/2 ML VIAL ONE ×3 (13:38→15:18)
[2020-07-26] MEDS ORDERED: Midazolam HCl 2 mg/2 ml Vial ONE (13:57)
[2020-07-26] MEDS ORDERED: Ondansetron PF 4 MG/2 ML Vial ONE (14:00)
[2020-07-26] MEDS ORDERED: Lidocaine 1% PF 5 ML VIAL ONE (14:00)
[2020-07-26] MEDS ORDERED: PROPOFOL 200 MG/20 ML VIAL ONE (14:00)
[2020-07-26] MEDS ORDERED: Dexamethasone 20 MG/5 ML VIAL ONE (14:00)
[2020-07-26] MEDS ORDERED: hydrALAZINE 20 MG/ML VIAL ONE (14:52)
== END 2020-07-26 17:00 | disposition home or self-care (01) ==
LOC: SDC/OP 11:41
PROVIDERS: ATTEND Anesthesiology Pain Medicine
DX: M48.02 Spinal stenosis, cervical region (principal); M25.78 Osteophyte, vertebrae; M50.00 Cervical disc disorder with myelopathy, unspecified cervical region; M47.24 Other spondylosis with radiculopathy, thoracic region; M51.14 Intervertebral disc disorders with radiculopathy, thoracic region; I10 Essential (primary) hypertension; M19.90 Unspecified osteoarthritis, unspecified site; Z79.82 Long term (current) use of aspirin; Z79.899 Other long term (current) drug therapy; Z88.1 Allergy status to other antibiotic agents; Z88.5 Allergy status to narcotic agent; Z88.8 Allergy status to other drugs, medicaments and biological substances; Z91.018 Allergy to other foods; Z98.1 Arthrodesis status
CPT/HCPCS: 72141; J0360; J1100; J2250; J2405; J2704; J3010

== ENCOUNTER 2021-01-10 10:08 | Outpatient (CLI) | payer MEDICARE | END 2021-01-10 10:09 | disposition home or self-care (01) | LOC: NM 10:08 | PROVIDERS: ATTEND Anesthesiology Pain Medicine | DX: S22.050 Wedge compression fracture of T5-T6 vertebra (principal); M47.814 Spondylosis without myelopathy or radiculopathy, thoracic region | CPT/HCPCS: 78306; A9503 ==

== ENCOUNTER 2021-02-16 07:16 | Day surgery (SDC) | payer MEDICARE ==
[2021-02-14 14:59] VITALS: BMI 32.5
[2021-02-16] MEDS ORDERED: HYDROcodone/Acetaminophen 5/325 mg Tablet ONE ×2 (08:13→08:26)
[2021-02-16] MEDS ORDERED: HYDROcodone/Acetaminophen 5/325 mg Tablet PO SCH (08:15)
[2021-02-16 11:10] VITALS: BP 172/85
== END 2021-02-16 10:45 | disposition home or self-care (01) ==
LOC: RAD 07:16
PROVIDERS: ATTEND Anesthesiology Pain Medicine
PROC: B02B1ZZ Computerized Tomography (CT Scan) of Spinal Cord using Low Osmolar Contrast (ICD-10-PCS; principal; 2021-02-16)
DX: M51.24 Other intervertebral disc displacement, thoracic region (principal); M48.062 Spinal stenosis, lumbar region with neurogenic claudication; M48.04 Spinal stenosis, thoracic region; M50.20 Other cervical disc displacement, unspecified cervical region; M53.82 Other specified dorsopathies, cervical region; G58.8 Other specified mononeuropathies; N26.1 Atrophy of kidney (terminal); I10 Essential (primary) hypertension; M19.90 Unspecified osteoarthritis, unspecified site; Z87.891 Personal history of nicotine dependence; Z79.82 Long term (current) use of aspirin; Z79.899 Other long term (current) drug therapy; Z88.5 Allergy status to narcotic agent; Z88.8 Allergy status to other drugs, medicaments and biological substances; Z91.018 Allergy to other foods
CPT/HCPCS: 62305; 72129; 72132

== ENCOUNTER 2024-10-21 13:46 | Outpatient (CLI) | payer OTHER ==
[2024-10-21 15:54] LABS: #Basophils 0.06 10x3/uL (0.0-0.2); #Eosinophils 0.11 10x3/uL (0.0-0.7); #Monocytes 0.79 10x3/uL (0.11-0.59); #Neutrophils 5.55 10x3/uL (1.40-6.50); %Basophils 0.7 % (0.0-1.0); %Eosinophils 1.3 % (0.0-10.0); %Lymphocytes 23.7 % (21.0-51.0); %Monocytes 9.2 % (0.0-10.0); %Neutrophils 64.9 % (42.0-75.0); Hematocrit 42.2 % (36.0-47.0); Hemoglobin 13.6 g/dL (12.0-16.0); Mean Corpuscular Hemoglobin 31.1 pg (27.0-31.0); Mean Corpuscular Volume 96.3 fL (78.0-98.0); Platelet Count 312 10x3/uL (130-400); Red Blood Cell (RBC) Count 4.38 mill/uL (4.20-5.40); White Blood Cell (WBC) Count 8.56 10x3/uL (4.8-10.8)
[2024-10-21 16:09] LABS: Anion Gap 12 mmol/L (10-20); BUN (Urea Nitrogen) 12 mg/dL (9.8-20.1); Calc. Creatinine Clearance 0 mL/min (70-130); Calcium 9.6 mg/dL (7.8-10.44); Carbon Dioxide 23 mmol/L (23-31); Chloride 107 mmol/L (98-107); Glucose 128 mg/dL (83-110); Potassium 3.8 mmol/L (3.5-5.1); Sodium 138 mmol/L (136-145)
[2024-10-21 16:14] LABS: INR-International Normal Ratio 1.1; Prothrombin Time 14.5 sec (12.0-14.7)
== END 2024-10-21 13:47 | disposition home or self-care (01) ==
LOC: LABBT 13:46
PROVIDERS: ATTEND Orthopaedic Surgery
DX: Z01.818 Encounter for other preprocedural examination (principal); M17.12 Unilateral primary osteoarthritis, left knee
CPT/HCPCS: 80048; 85025; 85610; 87081

== ENCOUNTER 2024-10-21 14:35 | Outpatient (CLI) | payer OTHER | END 2024-10-21 14:36 | disposition home or self-care (01) | LOC: CT 14:35 | PROVIDERS: ATTEND Orthopaedic Surgery | DX: M17.12 Unilateral primary osteoarthritis, left knee (principal) ==